=== PATIENT | male | born 1965 | race Caucasian/White ===

== ENCOUNTER 2017-12-09 19:00 | Emergency (ER) | payer OTHER ==
[2017-12-09 20:26] LABS: ABS Lymphocytes 5.1 10^3/ul (1.0-4.8); Hematocrit 40 % (42-52); Hemoglobin 13.6 g/dl (14.0-18.0); Mean Corpuscular HGB Conc 34 g/dl (31-36); Mean Corpuscular Hemoglobin 32 pg (27-31); Mean Corpuscular Volume 94 fL (80-94); Mean Platelet Volume 10 um3 (7.4-10.4); Platelet Count 274 10^3/ul (150-450); Red Blood Count 4.29 10^6/ul (4.0-5.4); Red Cell Distribution Width 13 % (10.5-15); White Blood Count 11.2 10^3/ul (3.5-10.8)
--- NOTE | 2017-12-09 20:37 | RAD ---
Indication: Chest pain. 2 views the chest including dual energy PA views demonstrates no mediastinal shift. Heart is of normal size and configuration. Lung garcia appear clear. When compared to previous exam of March 12, 2009 no significant change is noted. IMPRESSION: No active cardiopulmonary disease is identified.
[2017-12-09 20:42] LABS: INR 0.98 (0.77-1.02)
[2017-12-09 20:45] LABS: EGFR Non-African American 80.7 (>60)
[2017-12-09 21:00] LABS: ABS Basophils 0 10^3/ul (0-0.2); ABS Eosinophils 0.3 10^3/ul (0-0.6); ABS Neutrophils 4.8 10^3/ul (1.5-7.7); ABS Nucleated RBC 0 10^3/ul; Eosinophil % 2.7 % (0-6); Lymphocyte % 45.4 % (25-47); Nucleated Red Blood Cells % 0
[2017-12-10 00:36] VITALS: BP 114/73
--- NOTE | 2017-12-10 00:46 | ED ---
Madisyn Brady Nilda, scribed for Angel Dennison MD on 12/09/17 at 2231 . Progress - Progress Note Progress Note: This pt was s/o by Dr. Irizarry, pending dispo, awaiting CT Head. CT Head, per radiologist, reveals: mild involutional changes, no hemorrhage, no mass, no visible infarct, and osseous structures are intact. Dr. Dennison has reviewed this report. The pt is stable and will be D/C home with Dx of Chest pain. Pt understands and is agreeable to D/C. Course/Dx - Diagnoses Provider Diagnoses: Chest pain The documentation as recorded by the Madisyn whipple Nilda accurately reflects the service I personally performed and the decisions made by , Angel Dennison MD.
--- NOTE | 2017-12-10 07:59 | RAD ---
INDICATION: Trauma, tingling in chest numbness in the wrists and ankles. COMPARISON: There are no prior studies available for comparison. TECHNIQUE: Contiguous axial sections of the brain were obtained from the skull base to the vertex without contrast. FINDINGS: The ventricles, cisterns and sulci are enlarged consistent with diffuse atrophy. No significant focal abnormality or mass effect is seen. There is no evidence for hemorrhage. No significant focal osseous abnormality is seen. The visualized portion of the paranasal sinuses and mastoid air cells appear clear. IMPRESSION: NO EVIDENCE FOR ACUTE INTRACRANIAL ABNORMALITY.
--- NOTE | 2017-12-10 11:30 | ED ---
Debbie Brady Gabriel, scribed for Heriberto Irizarry MD on 12/09/17 at 1947 . HPI Chest Pain - HPI Summary HPI Summary: This patient is a 52 year old M presenting to [facility] with a chief complaint of intermittent CP that woke him from his sleep last night. The patient rates the stabbing pain 4/10 in severity. Patient reports MELENDEZ, tingling in his extremities , and the sensation he can hear the blood pumping in his ears. Patient denies SOB, MANJARREZ, and cough. Pt states he felt strange as he went to bed the previous night and thought he was having heartburn. Pt recently got the flu shot and says the injection site feels like someone punched him. Additionally he slipped and fell on ice two days ago and hurting his left ankle. Hx HTN and DM. - History of Current Complaint Chief Complaint: EDHeadache Time Seen by Provider: 12/09/17 19:34 Hx Obtained From: Patient Onset/Duration: Started Days Ago, Still Present Timing: Intermittent Initial Severity: Moderate Current Severity: Moderate Pain Intensity: 4 Pain Scale Used: 0-10 Numeric Chest Pain Location: Mid Sternal Chest Pain Radiates: No Character: Sharp/Stabbing Associated Signs and Symptoms: Positive: Other: - reports MELENDEZ, tingling in his extremities, and the sensation he can hear the blood pumping in his ears - Allergy/Home Medications Allergies/Adverse Reactions: Allergies Allergy/AdvReac Type Severity Reaction Status Date / Time No Known Allergies Allergy Verified 12/09/17 19:03 PMH/Surg Hx/FS Hx/Imm Hx Endocrine/Hematology History: Reports: Hx Diabetes Cardiovascular History: Reports: Hx Hypertension Infectious Disease History: No Infectious Disease History: Denies: Traveled Outside the [place] in Last 30 Days - Family History Known Family History: Positive: Other - cancer Negative: Hypertension, Diabetes, Renal Disease, Blood Disorder Review of Systems Positive: Other - sensation he can hear the blood pumping in his ears Positive: Chest Pain Negative: Shortness Of Breath, Cough Positive: Headache, Paresthesia - tingling in his extremities All Other Systems Reviewed And Are Negative: Yes Physical Exam - Summary Physical Exam Summary: Appearance: The patient is well-nourished in no acute distress and in no acute pain. Skin: The skin is warm and dry and skin color reflects adequate perfusion. HEENT: The head is normocephalic and atraumatic. The pupils are equal and reactive. The conjunctivae are clear and without drainage. Nares are patent and without drainage. Mouth reveals moist mucous membranes and the throat is without erythema and exudate. The external ears are intact. The ear canals are patent and without drainage. The tympanic membranes are intact. Neck: the neck is supple with full range of motion and non-tender. There are no carotid bruits. There is no neck vein distension. Respiratory: Chest is non-tender. Lungs are clear to auscultation and breath sounds are symmetrical and equal. Cardiovascular: Heart is regular rate and rhythm. There is no murmur or rub auscultated. There is no peripheral edema and pulses are symmetrical and equal. Abdomen: The abdomen is soft and non-tender. There are normal bowel sounds heard in all four quadrants and there is no organomegaly palpated. Musculoskeletal: There is no back tenderness noted. Extremities are non-tender with full range of motion. There is good capillary refill. There is no peripheral edema or calf tenderness elicited. Neurological: Patient is alert and oriented to person, place and time. The patient has symmetrical motor strength in all four extremities. Cranial nerves are grossly intact. Deep tendon reflexes are symmetrical and equal in all four extremities. Psychiatric: The patient has an appropriate affect and does not exhibit any anxiety or depression. Triage Information Reviewed: Yes Vital Signs On Initial Exam: Initial Vitals Temp Pulse Resp BP Pulse Ox 97.8 F 83 18 156/88 99 12/09/17 19:03 12/09/17 19:03 12/09/17 19:03 12/09/17 19:03 12/09/17 19:03 Vital Signs Reviewed: Yes Diagnostics - Vital Signs Vital Signs Temp Pulse Resp BP Pulse Ox 12/09/17 19:03 97.8 F 83 18 156/88 99 - Laboratory Lab Results: Lab Results 12/09/17 12/09/17 12/09/17 Range/Units 20:11 20:11 20:11 WBC 11.2 H (3.5-10.8) 10^3/ul RBC 4.29 (4.0-5.4) 10^6/ul Hgb 13.6 L (14.0-18.0) g/dl Hct 40 L (42-52) % MCV 94 (80-94) fL MCH 32 H (27-31) pg MCHC 34 (31-36) g/dl RDW 13 (10.5-15) % Plt Count 274 (150-450) 10^3/ul MPV 10 (7.4-10.4) um3 Neut % (Auto) 42.5 (38-83) % Lymph % (Auto) 45.4 (25-47) % [place] % (Auto) 9.2 H (1-9) % Eos % (Auto) 2.7 (0-6) % Baso % (Auto) 0.2 (0-2) % Absolute Neuts (auto) 4.8 (1.5-7.7) 10^3/ul Absolute Lymphs (auto) 5.1 H (1.0-4.8) 10^3/ul Absolute Monos (auto) 1.0 H (0-0.8) 10^3/ul Absolute Eos (auto) 0.3 (0-0.6) 10^3/ul Absolute Basos (auto) 0 (0-0.2) 10^3/ul Absolute Nucleated RBC 0 10^3/ul Nucleated RBC % 0 INR (Anticoag Therapy) (0.77-1.02) D-Dimer, Quantitative (Less Than 230) ng/mL Sodium 135 (133-145) mmol/L Potassium 3.9 (3.5-5.0) mmol/L Chloride 103 (101-111) mmol/L Carbon Dioxide 25 (22-32) mmol/L Anion Gap 7 (2-11) mmol/L BUN 23 (6-24) mg/dL Creatinine 0.97 (0.67-1.17) mg/dL Est GFR ( Amer) 103.7 (>60) Est GFR (Non-Af Amer) 80.7 (>60) BUN/Creatinine Ratio 23.7 H (8-20) Glucose 170 H (70-100) mg/dL Lactic Acid (0.5-2.0) mmol/L Calcium 9.5 (8.6-10.3) mg/dL Total Bilirubin 0.80 (0.2-1.0) mg/dL AST 19 (13-39) U/L ALT 23 (7-52) U/L Alkaline Phosphatase 65 (34-104) U/L Troponin I 0.00 (<0.04) ng/mL B-Natriuretic Peptide 11 ( - 100) pg/mL Total Protein 6.8 (6.4-8.9) g/dL Albumin 4.1 (3.2-5.2) g/dL Globulin 2.7 (2-4) g/dL Albumin/Globulin Ratio 1.5 (1-3) TSH 2.24 (0.34-5.60) mcIU/mL Influenza A (Rapid) (Negative) Influenza B (Rapid) (Negative) 12/09/17 12/09/17 12/09/17 Range/Units 20:11 20:11 20:57 WBC (3.5-10.8) 10^3/ul RBC (4.0-5.4) 10^6/ul Hgb (14.0-18.0) g/dl Hct (42-52) % MCV (80-94) fL MCH (27-31) pg MCHC (31-36) g/dl RDW (10.5-15) % Plt Count (150-450) 10^3/ul MPV (7.4-10.4) um3 Neut % (Auto) (38-83) % Lymph % (Auto) (25-47) % [place] % (Auto) (1-9) % Eos % (Auto) (0-6) % Baso % (Auto) (0-2) % Absolute Neuts (auto) (1.5-7.7) 10^3/ul Absolute Lymphs (auto) (1.0-4.8) 10^3/ul Absolute Monos (auto) (0-0.8) 10^3/ul Absolute Eos (auto) (0-0.6) 10^3/ul Absolute Basos (auto) (0-0.2) 10^3/ul Absolute Nucleated RBC 10^3/ul Nucleated RBC % INR (Anticoag Therapy) 0.98 (0.77-1.02) D-Dimer, Quantitative < 200 (Less Than 230) ng/mL Sodium (133-145) mmol/L Potassium (3.5-5.0) mmol/L Chloride (101-111) mmol/L Carbon Dioxide (22-32) mmol/L Anion Gap (2-11) mmol/L BUN (6-24) mg/dL Creatinine (0.67-1.17) mg/dL Est GFR ( Amer) (>60) Est GFR (Non-Af Amer) (>60) BUN/Creatinine Ratio (8-20) Glucose (70-100) mg/dL Lactic Acid 1.5 (0.5-2.0) mmol/L Calcium (8.6-10.3) mg/dL Total Bilirubin (0.2-1.0) mg/dL AST (13-39) U/L ALT (7-52) U/L Alkaline Phosphatase (34-104) U/L Troponin I (<0.04) ng/mL B-Natriuretic Peptide ( - 100) pg/mL Total Protein (6.4-8.9) g/dL Albumin (3.2-5.2) g/dL Globulin (2-4) g/dL Albumin/Globulin Ratio (1-3) TSH (0.34-5.60) mcIU/mL Influenza A (Rapid) Negative (Negative) Influenza B (Rapid) Negative (Negative) 12/09/17 Range/Units 22:20 WBC (3.5-10.8) 10^3/ul RBC (4.0-5.4) 10^6/ul Hgb (14.0-18.0) g/dl Hct (42-52) % MCV (80-94) fL MCH (27-31) pg MCHC (31-36) g/dl RDW (10.5-15) % Plt Count (150-450) 10^3/ul MPV (7.4-10.4) um3 Neut % (Auto) (38-83) % Lymph % (Auto) (25-47) % [place] % (Auto) (1-9) % Eos % (Auto) (0-6) % Baso % (Auto) (0-2) % Absolute Neuts (auto) (1.5-7.7) 10^3/ul Absolute Lymphs (auto) (1.0-4.8) 10^3/ul Absolute Monos (auto) (0-0.8) 10^3/ul Absolute Eos (auto) (0-0.6) 10^3/ul Absolute Basos (auto) (0-0.2) 10^3/ul Absolute Nucleated RBC 10^3/ul Nucleated RBC % INR (Anticoag Therapy) (0.77-1.02) D-Dimer, Quantitative (Less Than 230) ng/mL Sodium (133-145) mmol/L Potassium (3.5-5.0) mmol/L Chloride (101-111) mmol/L Carbon Dioxide (22-32) mmol/L Anion Gap (2-11) mmol/L BUN (6-24) mg/dL Creatinine (0.67-1.17) mg/dL Est GFR ( Amer) (>60) Est GFR (Non-Af Amer) (>60) BUN/Creatinine Ratio (8-20) Glucose (70-100) mg/dL Lactic Acid (0.5-2.0) mmol/L Calcium (8.6-10.3) mg/dL Total Bilirubin (0.2-1.0) mg/dL AST (13-39) U/L ALT (7-52) U/L Alkaline Phosphatase (34-104) U/L Troponin I 0.00 (<0.04) ng/mL B-Natriuretic Peptide ( - 100) pg/mL Total Protein (6.4-8.9) g/dL Albumin (3.2-5.2) g/dL Globulin (2-4) g/dL Albumin/Globulin Ratio (1-3) TSH (0.34-5.60) mcIU/mL Influenza A (Rapid) (Negative) Influenza B (Rapid) (Negative) Result Diagrams: 12/09/17 20:11 12/09/17 20:11 Lab Statement: Any lab studies that have been ordered have been reviewed, and results considered in the medical decision making process. - Radiology CXR Radiology Interpretation Completed By: Radiologist - no active cardiopulmonary disease ED physician has reviewed this radiology report. - EKG 1912 Cardiac Rate: NL EKG Rhythm: Sinus Rhythm - at 76 BPM Chest Pain Course/Dx - Course Course Of Treatment: Mr. Eisenberg presented to the ED with a myriad of C/O. He has had intermittent CPs for about 18 hours and a slight left occipital MELENDEZ. He could not establish any exacerbating or relieving factors. He may have had a little SOB and nausea but not now. His W/U including two troponins and a d- dimer was negative. A CT was also. He took a minor fall yesterday and this may be related. I recommended F/U with his PMD if problems continue. - Diagnoses Provider Diagnoses: Chest pain Discharge - Discharge Plan Condition: Stable Disposition: HOME Patient Education Materials: Chest Pain (ED) Referrals: Kelvin Norris MD [Medical Doctor] - 3 Days Additional Instructions: RETURN TO EMERGENCY DEPARTMENT FOR ANY NEW OR WORSENING SYMPTOMS The documentation as recorded by the Debbie whipple Gabriel accurately reflects the service I personally performed and the decisions made by me, Heriberto Irizarry MD.
== END 2017-12-10 00:40 | disposition home or self-care (01) ==
LOC: ED 19:00
DX: R07.9 Chest pain, unspecified (principal)
CPT/HCPCS: 36415; 70450; 71046; 80053; 83605; 83880; 84443; 84484; 85025; 85379; 85610; 87502; 93005; 99283